=== PATIENT | male | born 1985 | race Caucasian/White ===

== ENCOUNTER 2018-09-17 09:52 | Emergency (ER) | payer OTHER ==
[~2018-09-17] VITALS: Ht 177.8 cm; Wt 95.3 kg
[2018-09-17 10:12] LABS: BE 0.1 mmol/L (-2 to +3)
[2018-09-17 10:14] LABS: pH 7.615 (7.340-7.450)
[2018-09-17 10:15] LABS: PCO2 18.8 mmHg (35.0-45.0); PO2 128.3 mmHg (75.0-100.0)
[2018-09-17 10:44] LABS: ABSOLUTE BASOPHILS 0.1 thou/uL (0.0-0.2); ABSOLUTE EOSINOPHILS 0.1 thou/uL (0.0-0.7); ABSOLUTE LYMPHOCYTES 1.7 thou/uL (0.8-5.3); ABSOLUTE MONOCYTES 0.6 thou/uL (0.0-1.2); BASOPHILS 0.9 %; EOSINOPHILS 1.4 %; HEMATOCRIT 43.5 % (42.0-52.0); HEMOGLOBIN 14.4 gm/dL (14.0-18.0); LYMPHOCYTES 17.6 %; MCHC 33.2 g/dL (28.0-37.0); MCV 81.4 fL (80.0-100.0); MONOCYTES 6.7 %; MPV 7.9 fl. (7.2-11.1); NUCLEATED RBCS 0 /100WBC; PLATELET COUNT* 193 thou/uL (150-400); POLYS 73.4 %; RBC 5.35 mil/uL (4.50-6.00); WBC 9.5 thou/uL (4.0-11.0)
[2018-09-17 11:00] LABS: ANION GAP 10 mmol/L (7-16); BUN 14 mg/dL (7-18); CALCIUM 9.5 mg/dL (8.5-10.1); CHLORIDE 105 mmol/L (98-107); CO2 27 mmol/L (21-32); CREATININE 1.3 mg/dL (0.6-1.3); GLUCOSE 104 mg/dL (70-99); POTASSIUM 4.2 mmol/L (3.5-5.1); SODIUM 142 mmol/L (136-145); TROPONIN-I LEVEL <0.06 ng/mL (<0.06)
[2018-09-17 11:02] LABS: ALKALINE PHOSPHATASE 66 U/L (46-116); SGOT 23 U/L (15-37); SGPT 39 U/L (30-65); TOTAL BILIRUBIN 0.5 mg/dL (<0.1-1.0); TOTAL PROTEIN 7.5 g/dL (6.4-8.2)
[2018-09-17 12:23] VITALS: BP 133/67
[2018-09-17 12:28] LABS: ANISOCYTOSIS 2+
[2018-09-17 12:29] LABS: MACROCYTES 2+
--- NOTE | 2018-09-18 15:51 | EKG ---
[place] [address] ELECTROCARDIOGRAM REPORT Name: GABBY RODRIGUEZ [id number] Admission: 09/17/18 Attend Phys: Discharge: 09/17/18 Date of : 87 Report #: [id number] THIS REPORT FOR: //name// [facility] ED Test Date: 2018-09-17 Test Time: 10:23:57 Pat Name: GABBY RODRIGUEZ Department: Room: Gender: M [employer]: : 1985 Requested By: Diamond Uribe Order Number: [id number] MD: Lester Lowery Measurements Intervals Phillips Rate: 67 P: 26 TX: 165 QRS: 9 QRSD: 94 T: 8 QT: 387 QTc: 409 Interpretive Statements Sinus rhythm Probable left atrial enlargement RSR' in V1 or V2, probably normal variant No previous ECG available for comparison Electronically Signed On 09-18-2018 15:50:56 CDT by Lester Lowery [email or web address] <ELECTRONICALLY SIGNED> By: Lester Lowery MD, [facility] 09/18/18 1550 1023 22 Lester Lowery MD, FACC /EPI
== END 2018-09-17 12:23 ==
LOC: M.ERS 09:52
PROVIDERS: Personal Emergency Response Attendant
DX: F41.9 Anxiety disorder, unspecified (principal); R06.4 Hyperventilation; F17.200 Nicotine dependence, unspecified, uncomplicated; J45.909 Unspecified asthma, uncomplicated

== ENCOUNTER 2019-01-14 21:07 | Emergency (ER) | payer OTHER ==
[~2019-01-14] VITALS: Ht 177.8 cm; Wt 81.7 kg
[2019-01-14 21:51] LABS: ABSOLUTE BASOPHILS 0.1 thou/uL (0.0-0.2); ABSOLUTE EOSINOPHILS 0.3 thou/uL (0.0-0.7); ABSOLUTE LYMPHOCYTES 1.6 thou/uL (0.8-5.3); ABSOLUTE NEUTROPHILS 7.7 thou/uL (1.6-8.1); BASOPHILS 0.7 %; EOSINOPHILS 2.7 %; HEMATOCRIT 41.4 % (42.0-52.0); HEMOGLOBIN 13.7 gm/dL (14.0-18.0); LYMPHOCYTES 14.7 %; MCH 27.1 pg (26.0-34.0); MCHC 33.2 g/dL (28.0-37.0); MCV 81.8 fL (80.0-100.0); MPV 8.3 fl. (7.2-11.1); NUCLEATED RBCS 0 /100WBC; PLATELET COUNT* 165 thou/uL (150-400); POLYS 72.9 %; RBC 5.06 mil/uL (4.50-6.00); RDW-CV 13.8 % (10.5-14.5); WBC 10.6 thou/uL (4.0-11.0)
[2019-01-14 22:01] LABS: CALCIUM 9.3 mg/dL (8.5-10.1); CREATININE 1.2 mg/dL (0.6-1.3); POTASSIUM 4.4 mmol/L (3.5-5.1)
[2019-01-14 22:06] LABS: ALBUMIN 4.1 g/dL (3.4-5.0); TOTAL BILIRUBIN 0.3 mg/dL (<0.1-1.0); TOTAL PROTEIN 7.6 g/dL (6.4-8.2)
[2019-01-14 22:44] VITALS: BP 124/75
== END 2019-01-14 22:45 | disposition home or self-care (01) ==
LOC: M.ERS 21:07
PROVIDERS: Emergency Medicine
DX: B34.9 Viral infection, unspecified (principal); F41.9 Anxiety disorder, unspecified; J45.909 Unspecified asthma, uncomplicated